=== PATIENT | male | born 1975 | race Caucasian/White ===

== ENCOUNTER 2016-05-25 18:57 | Emergency (ER) | payer OTHER ==
--- NOTE | 2016-05-25 19:48 | ED NURSING NOTES ---
Clinical Report - Nurses [facility] [address] [place] [address] 05/25/2016 19:00 Patient: JACQUE DUGGAN TRIAGE Triage time 19:15. Acuity: LEVEL 3. Chief Complaint: BACK PAIN. --19:21 Kee Neely R.N. 19:15 05/25/16. HR: 110. RR: 20. O2 saturation: 100%. Temp: 98.1 F. Pain level now 10. --19:21 Kee Neely R.N. 19:21 05/25/16. BP: 127/74. --19:21 Kee Neely R.N. Weight: 95.2 kg stated. Height/Length: 73 inches. BMI: 27.7. --19:16 Kee Neely R.N. Medications None. --19:20 Kee Neely R.N. Medication/allergy information source: the patient. --19:21 Kee Neely R.N. Allergies Codeine. Morphine Sulfate. Seafood. Vistaril. --19:20 Kee Neely R.N. History Arrived by private vehicle. Historian: patient. Unaccompanied. This started just prior to arrival. ( Pt was moving furniture and hurt his back. Pt has been having back problems for many years. Pt is having pain down both legs that is burning and shooting pain into the foot. Pt is having numbness in the feet. Pt was able to ambulate from the lobby to the room, but appeared in pain.). He has had numbness and tingling. No history of recent trauma. Occurred at home. ( in the feet). 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 PAST MEDICAL HX: Tetanus status: up-to-date. Immunizations: up-to-date. SOCIAL HX: Never smoker. No alcohol use or drug use. --19:21 Kee Neely R.N. Interventions ID band on patient. To treatment room. --19:21 Kee Neely R.N. PHYSICAL ASSESSMENT GENERAL / NEURO / PSYCH: Alert. Oriented X 4. Appears in no acute distress. Appears in pain. He has had numbness. RESPIRATORY: Respirations not labored. Chest nontender. Breath sounds within normal limits. CVS: Normal heart rate and rhythm. Capillary refill less than 2 seconds. GI / : Abdomen soft and nontender. Bowel sounds within normal limits. EXTREMITIES: Limited ROM present. Sensation intact in extremities. BACK: ( lower back pain). Normal inspection of the neck and back. Limited ROM of the back. No neck or back tenderness. --19:21 Kee Neely R.N. NURSING PROGRESS NOTES The plan of care for this patient has been created. Patient gowned. Head of bed elevated. Two patient identifiers checked. Call light placed in reach. Side rails up x 1. Bed placed in lowest position. --19:22 Kee Neely R.N. DISPOSITION / DISCHARGE Departure time: 19:51. Condition at departure: unchanged. No learning barriers present. Discharge instructions provided and reviewed with the patient. Reviewed warnings. Reviewed medication(s). Treatments reviewed. Patient verbalized understanding. Written instructions provided in Malaysian. The patient was discharged by the physician process assistant. He was discharged home and unaccompanied at time of discharge. He left the Emergency Department ambulatory and via private vehicle. Patient driving. --19:53 Kee Neely R.N. 19:49 05/25/16. BP: 125/75. HR: 80. RR: 18. O2 saturation: 99%. Pain level now 8/10. --19:53 Kee Neely R.N. Locked/Released at 05/25/2016 19:54 by Kee Neely R.N.
--- NOTE | 2016-05-25 19:48 | ED CLINICAL REPORT ---
Clinical Report - Physicians/Mid Levels [facility] [address] [place] [address] 05/25/2016 19:00 Patient: JACQUE DUGGAN Time Seen: 19:28 May 25 2016. Arrived- By private vehicle. Historian- patient. HISTORY OF PRESENT ILLNESS Chief Complaint: BACK PAIN. Onset was just prior to arrival and it is still present. It is described as being mild and in the area of the left side of the lower thoracic spine, lower thoracic spine and right side of the lower thoracic spine. The quality is noted to be "pain" and similar to prior episodes. No bladder dysfunction or bowel dysfunction. Additional history - patient reports history of back pain off and on episodes, without times paresthesias to bilateral lower extremities, left curb from his truck, she has a new one that is 2 days old, and felt an instantaneous pain to the primarily right side of his back. Reports pain worsens with movement, alleviated by laying on his side. Has taken Motrin at home prior to arrival. No direct fall or trauma. History of the same pain. Prior injury to his lumbar spine, distantly with fractures, and bulging disc, opted for no surgery at the time, has had physical therapy for this. Patient notes the possibility of an injury. REVIEW OF SYSTEMS No chills, sore throat, cough, difficulty breathing or chest pain. No nausea, vomiting, difficulty with urination, urinary frequency or hematuria. All systems otherwise negative, except as recorded above. PAST HISTORY Has not had a prior back injury. ADDITIONAL NOTES The nursing notes have been reviewed. PHYSICAL EXAM Appearance: Alert. HEENT: Normal external inspection. Neck: Normal inspection. Neck nontender. CVS: Normal heart rate and rhythm. Heart sounds normal. No cardiac murmur. Respiratory: No respiratory distress. Breath sounds normal. No decreased air movement or chest wall injury. Abdomen: Normal inspection. Soft. Back: Vertebral point tenderness (lumbar region, worse on right, with muscle spasms). Soft tissue tenderness. Skin: Skin warm. Normal skin color. Neuro: Oriented X 3. No motor deficit. No sensory deficit. Straight leg raising: positive on the right at 30 degrees and negative on the left. PROGRESS AND PROCEDURES Course of Care: pt able to ambulate. Drove self, driving self home. There are no risks for spinal epidural abscess or hematoma as patient is without any risk factors such as IVDA or evidence of active infection, no midline tenderness to percussion. Hence I do not feel emergent imaging with an MRI is indicated. However I did discuss with the patient that if these symptoms develop, or if the pain does not resolve an MRI may need to be done outpatient, or in the ED if symptoms worsen acutely or new onset of the above mentioned symptoms develop. 05/25/2016 19:21 BP: 127/74. 05/25/2016 19:15 HR: 110. RR: 20. O2 saturation: 100%. Temp: 98.1 F. Patient is stable. Symptoms better. Patient/family counseled. Disposition: Discharged. CLINICAL IMPRESSION Acute lumbar back pain. INSTRUCTIONS Apply ice. Rest for three days. Prescription Medications: Soma 350 mg: Take 1 orally every 6 hours as needed for muscle spasm. Dispense twenty (20). No refills. Substitution is permissible. Percocet 5 mg/325 mg: take 1 tablet orally every 6 hours as needed for pain. Dispense twelve (12). No refill. Substitution is permissible. Follow-up: Follow up with your doctor Sunday. (Electronically signed by Gwendolyn Martinez P.A.-C 05/25/2016 19:58)
--- NOTE | 2016-05-25 19:48 | ED NURSING NOTES ---
Clinical Report - Nurses [facility] [address] [place] [address] 05/25/2016 19:00 Patient: JACQUE DUGGAN TRIAGE Triage time 19:15. Acuity: LEVEL 3. Chief Complaint: BACK PAIN. --19:21 Kee Neely R.N. 19:15 05/25/16. HR: 110. RR: 20. O2 saturation: 100%. Temp: 98.1 F. Pain level now 10. --19:21 Kee Neely R.N. 19:21 05/25/16. BP: 127/74. --19:21 Kee Neely R.N. Weight: 95.2 kg stated. Height/Length: 73 inches. BMI: 27.7. --19:16 Kee Neely R.N. Medications None. --19:20 Kee Neely R.N. Medication/allergy information source: the patient. --19:21 Kee Neely R.N. Allergies Codeine. Morphine Sulfate. Seafood. Vistaril. --19:20 Kee Neely R.N. History Arrived by private vehicle. Historian: patient. Unaccompanied. This started just prior to arrival. ( Pt was moving furniture and hurt his back. Pt has been having back problems for many years. Pt is having pain down both legs that is burning and shooting pain into the foot. Pt is having numbness in the feet. Pt was able to ambulate from the lobby to the room, but appeared in pain.). He has had numbness and tingling. No history of recent trauma. Occurred at home. ( in the feet). Treatment CONDUCTOR YARD: Took Tylenol and ibuprofen. PAST MEDICAL HX: Tetanus status: up-to-date. Immunizations: up-to-date. SOCIAL HX: Never smoker. No alcohol use or drug use. --19:21 Kee Neely R.N. Interventions ID band on patient. To treatment room. --19:21 Kee Neely R.N. PHYSICAL ASSESSMENT GENERAL / NEURO / PSYCH: Alert. Oriented X 4. Appears in no acute distress. Appears in pain. He has had numbness. RESPIRATORY: Respirations not labored. Chest nontender. Breath sounds within normal limits. CVS: Normal heart rate and rhythm. Capillary refill less than 2 seconds. GI / : Abdomen soft and nontender. Bowel sounds within normal limits. EXTREMITIES: Limited ROM present. Sensation intact in extremities. BACK: ( lower back pain). Normal inspection of the neck and back. Limited ROM of the back. No neck or back tenderness. --19:21 Kee Neely R.N. NURSING PROGRESS NOTES The plan of care for this patient has been created. Patient gowned. Head of bed elevated. Two patient identifiers checked. Call light placed in reach. Side rails up x 1. Bed placed in lowest position. --19:22 Kee Neely R.N. DISPOSITION / DISCHARGE Departure time: 19:51. Condition at departure: unchanged. No learning barriers present. Discharge instructions provided and reviewed with the patient. Reviewed warnings. Reviewed medication(s). Treatments reviewed. Patient verbalized understanding. Written instructions provided in [place]. The patient was discharged by the physician office assistant. He was discharged home and unaccompanied at time of discharge. He left the Emergency Department ambulatory and via private vehicle. Patient driving. --19:53 Kee Neely R.N. 19:49 05/25/16. BP: 125/75. HR: 80. RR: 18. O2 saturation: 99%. Pain level now 8/10. --19:53 Kee Neely R.N. Locked/Released at 05/25/2016 19:54 by Kee Neely R.N.
--- NOTE | 2016-05-25 19:58 | ED MAR SUMMARY ---
..... Medication Administration Record [address] [place] [address] Patient: JACQUE DUGGAN Visit ID: [id number] 41y, M Weight: 95.2 kg Height/Length: 73 in BMI: 27.7 ALLERGIES: Codeine, Morphine Sulfate, Seafood, Vistaril
--- NOTE | 2016-05-25 19:58 | ED MAR SUMMARY ---
..... Medication Administration Record [facility] [address] [place] [address] Patient: JACQUE DUGGAN Visit ID: [id number] 41y, M Weight: 95.2 kg Height/Length: 73 in BMI: 27.7 ALLERGIES: Codeine, Morphine Sulfate, Seafood, Vistaril
--- NOTE | 2016-05-25 19:58 | ED MED RECONCILIATION SUMMARY ---
Patient: JACQUE DUGGAN Medication Reconciliation Report [facility] VisitID: [id number] [place] [address] 41y, M Registration Date/Time: 05/25/2016 Weight: 95.2 kg Height/Length: 73 in. BMI: 27.7 ALLERGIES: Codeine, Morphine Sulfate, Seafood, Vistaril The patient's Home Medications are listed below: NONE. The source(s) of the original Home Medication information: patient The following Medications were given to the patient in the Emergency Department: None. The following Medications were prescribed to the patient: Soma 350 mg: Take 1 orally every 6 hours as needed for muscle spasm. Dispense twenty (20). No refills. Substitution is permissible. -- Gwendolyn Martinez, P.A.-C Percocet 5 mg/325 mg: take 1 tablet orally every 6 hours as needed for pain. Dispense twelve (12). No refill. Substitution is permissible. -- Gwendolyn Martinez, P.A.-C
--- NOTE | 2016-05-25 19:58 | ED DISCHARGE INSTRUCTIONS ---
Patient: JACQUE DUGGAN General Instructions [facility] VisitID: [id number] [place] [address] 41y, M Registration Date/Time: 05/25/2016 Acute lumbar back pain. INSTRUCTIONS Apply ice. Rest for three days. Prescription Medications: Soma 350 mg: Take 1 orally every 6 hours as needed for muscle spasm. Dispense twenty (20). No refills. Substitution is permissible. Percocet 5 mg/325 mg: take 1 tablet orally every 6 hours as needed for pain. Dispense twelve (12). No refill. Substitution is permissible. Follow-up: Follow up with your doctor Sunday. ADDITIONAL INFORMATION Back Pain [Acute Or Chronic] Back pain is usually caused by an injury to the muscles or ligaments of the spine. Sometimes the disks that separate each bone in the spine may bulge and cause pain by pressing on a nearby nerve. Back pain may also appear after a sudden twisting/bending force (such as in a car accident), after a simple awkward movement, or lifting something heavy with poor body positioning. In either case, muscle spasm is often present and adds to the pain. Acute back pain usually gets better in one to two weeks. Back pain related to disk disease, arthritis in the spinal joints or spinal stenosis (narrowing of the spinal canal) can become chronic and last for months or years. Unless you had a physical injury (for example, a car accident or fall) X-rays are usually not ordered for the initial evaluation of back pain. If pain continues and does not respond to medical treatment, x-rays and other tests may be performed at a later time. Home Care: You may need to stay in bed the first few days. But, as soon as possible, begin sitting or walking to avoid problems with prolonged bed rest (muscle weakness, worsening back stiffness and pain, blood clots in the legs). When in bed, try to find a position of comfort. A firm mattress is best. Try lying flat on your back with pillows under your knees. You can also try lying on your side with your knees bent up towards your chest and a pillow between your knees. Avoid prolonged sitting. This puts more stress on the lower back than standing or walking. During the first two days after injury, apply an ICE PACK to the painful area for 20 minutes every 2-4 hours. This will reduce swelling and pain. HEAT (hot shower, hot bath or heating pad) works well for muscle spasm. You can start with ice, then switch to heat after two days. Some patients feel best alternating ice and heat treatments. Use the one method that feels the best to you. You may use acetaminophen (Tylenol) or ibuprofen (Motrin, Advil) to control pain, unless another pain medicine was prescribed. [NOTE: If you have chronic liver or kidney disease or ever had a stomach ulcer or GI bleeding, talk with your doctor before using these medicines.] Be aware of safe lifting methods and do not lift anything over 15 pounds until all the pain is gone. Follow Up with your doctor or this facility if your symptoms do not start to improve after one week. Physical therapy may be needed. [NOTE: If X-rays were taken, they will be reviewed by a radiologist. You will be notified of any new findings that may affect your care.] Get Prompt Medical Attention if any of the following occur: Pain becomes worse or spreads to your legs Weakness or numbness in one or both legs Loss of bowel or bladder control Numbness in the groin or genital area Sciatica Sciatica ("Lumbar Radiculopathy") causes a pain that spreads from the lower back down into the buttock, hip and leg. Sometimes leg pain can occur without any back pain. Sciatica is due to irritation or pressure on a spinal nerve as it comes out of the spinal canal. This is most often due to a bulge or rupture of a nearby spinal disk (the cartilage cushion between each spinal bone), which presses on a nearby nerve. Other causes include spinal stenosis (narrowing of the spinal canal) and spasm of the pyriform muscle (a muscle in the buttocks that the sciatic nerve passes through). Sciatica may begin after a sudden twisting/bending force (such as in a car accident), or sometimes after a simple awkward movement. In either case, muscle spasm is commonly present and contributes to the pain. The diagnosis of sciatica is made from the symptoms and physical exam. Unless you had a physical injury (such as a car accident or fall), X-rays are usually not ordered for the initial evaluation of sciatica because the nerves and disks cannot be seen on an x-ray. If signs of a compressed nerve are present (for example, loss of tendon reflex or strength in the leg), an MRI (magnetic resonance imaging) scan will need to be scheduled as an outpatient. Most sciatica (80-90%) gets better with medicine, exercise, physical therapy. If symptoms continue after at least three months of medical treatment, surgery may be considered. Home Care: You may need to stay in bed the first few days. But, as soon as possible, begin sitting or walking to avoid problems with prolonged bed rest. When in bed, try to find a position of comfort. A firm mattress is best. Try lying flat on your back with pillows under your knees. You can also try lying on your side with your knees bent up towards your chest and a pillow between your knees. Avoid prolonged sitting. This puts more stress on the lower back than standing or walking. Some persons find relief with heat (hot shower, hot bath or heating pad) and massage, while others prefer cold packs (crushed or cubed ice in a plastic bag, wrapped in a towel). Try both and use the method that feels best for 20 minutes several times a day. You may use acetaminophen (Tylenol) or ibuprofen (Motrin, Advil) to control pain, unless another pain medicine was prescribed. [ NOTE: If you have chronic liver or kidney disease or ever had a stomach ulcer or GI bleeding, talk with your doctor before using these medicines.] Be aware of safe lifting methods and do not lift anything over 15 pounds until all the pain is gone. Follow Up with your doctor or this facility if your symptoms do not start to improve after one week. Physical therapy or further testing may be needed. [NOTE: If X-rays were taken, they will be reviewed by a radiologist. You will be notified of any new findings that may affect your care.] Get Prompt Medical Attention if any of the following occur: Pain becomes worse, not controlled by the prescribed medicine Weakness or numbness in one or both legs Numbness in the groin, genital area Loss of bowel or bladder control Oxycodone Hydrochloride, Acetaminophen Oral tablet What is this medicine? ACETAMINOPHEN; OXYCODONE (a set a GABO loreta fen; ox i KOE done) is a pain reliever. It is used to treat mild to moderate pain. How should I use this medicine? Take this medicine by mouth with a full glass of water. Follow the directions on the prescription label. Take your medicine at regular intervals. Do not take your medicine more often than directed. Talk to your inside sales assistant regarding the use of this medicine in children. Special care may be needed. Patients over 65 years old may have a stronger reaction and need a smaller dose. What side effects may I notice from receiving this medicine? Side effects that you should report to your doctor or health personal care worker as soon as possible: allergic reactions like skin rash, itching or hives, swelling of the face, lips, or tongue breathing difficulties, wheezing confusion light headedness or fainting spells severe stomach pain yellowing of the skin or the whites of the eyes Side effects that usually do not require medical attention (report to your doctor or health personal care worker if they continue or are bothersome): dizziness drowsiness nausea vomiting What may interact with this medicine? alcohol antihistamines barbiturates like amobarbital, butalbital, butabarbital, methohexital, pentobarbital, phenobarbital, thiopental, and secobarbital benztropine drugs for bladder problems like solifenacin, trospium, oxybutynin, tolterodine, hyoscyamine, and methscopolamine drugs for breathing problems like ipratropium and tiotropium drugs for certain stomach or intestine problems like propantheline, homatropine methylbromide, glycopyrrolate, atropine, belladonna, and dicyclomine general anesthetics like etomidate, ketamine, nitrous oxide, propofol, desflurane, enflurane, halothane, isoflurane, and sevoflurane medicines for depression, anxiety, or psychotic disturbances medicines for sleep muscle relaxants naltrexone narcotic medicines (opiates) for pain phenothiazines like perphenazine, thioridazine, chlorpromazine, mesoridazine, fluphenazine, prochlorperazine, promazine, and trifluoperazine scopolamine tramadol trihexyphenidyl What if I miss a dose? If you miss a dose, take it as soon as you can. If it is almost time for your next dose, take only that dose. Do not take double or extra doses. Where should I keep my medicine? Keep out of the reach of children. This medicine can be abused. Keep your medicine in a safe place to protect it from theft. Do not share this medicine with anyone. Selling or giving away this medicine is dangerous and against the law. Store at room temperature between 20 and 25 degrees C (68 and 77 degrees F). Keep container tightly closed. Protect from light. This medicine may cause accidental overdose and if it is taken by other adults, children, or pets. Flush any unused medicine down the toilet to reduce the chance of harm. Do not use the medicine after the expiration date. What should I tell my health care provider before I take this medicine? They need to know if you have any of these conditions: brain tumor Crohn's disease, inflammatory bowel disease, or ulcerative colitis drink more than 3 alcohol containing drinks per day drug abuse or addiction head injury heart or circulation problems kidney disease or problems going to the bathroom liver disease lung disease, asthma, or breathing problems an unusual or allergic reaction to acetaminophen, oxycodone, other opioid analgesics, other medicines, foods, dyes, or preservatives or trying to get breast-feeding What should I watch for while using this medicine? Tell your doctor or health personal care worker if your pain does not go away, if it gets worse, or if you have new or a different type of pain. You may develop tolerance to the medicine. Tolerance means that you will need a higher dose of the medication for pain relief. Tolerance is normal and is expected if you take this medicine for a long time. Do not suddenly stop taking your medicine because you may develop a severe reaction. Your body becomes used to the medicine. This does NOT mean you are addicted. Addiction is a behavior related to getting and using a drug for a non-medical reason. If you have pain, you have a medical reason to take pain medicine. Your doctor will tell you how much medicine to take. If your doctor wants you to stop the medicine, the dose will be slowly lowered over time to avoid any side effects. You may get drowsy or dizzy. Do not drive, use machinery, or do anything that needs mental alertness until you know how this medicine affects you. Do not stand or sit up quickly, especially if you are an older patient. This reduces the risk of dizzy or fainting spells. Alcohol may interfere with the effect of this medicine. Avoid alcoholic drinks. There are different types of narcotic medicines (opiates) for pain. If you take more than one type at the same time, you may have more side effects. Give your health care provider a list of all medicines you use. Your doctor will tell you how much medicine to take. Do not take more medicine than directed. Call emergency for help if you have problems breathing. The medicine will cause constipation. Try to have a bowel movement at least every 2 to 3 days. If you do not have a bowel movement for 3 days, call your doctor or health personal care worker. Do not take Tylenol (acetaminophen) or medicines that have acetaminophen with this medicine. Too much acetaminophen can be very dangerous. Many nonprescription medicines contain acetaminophen. Always read the labels carefully to avoid taking more acetaminophen. You have been given the following additional information: Back Pain (Acute Or Chronic) Back Pain W/ Sciatica Oxycodone Hydrochloride, Acetaminophen Oral tablet Rest for three days. (Electronically signed by Gwendolyn Martinez P.A.-C 05/25/2016 19:58)
--- NOTE | 2016-05-25 19:58 | ED MED RECONCILIATION SUMMARY ---
Patient: JACQUE DUGGAN Medication Reconciliation Report [facility] VisitID: [id number] [place] [address] 41y, M Registration Date/Time: 05/25/2016 Weight: 95.2 kg Height/Length: 73 in. BMI: 27.7 ALLERGIES: Codeine, Morphine Sulfate, Seafood, Vistaril The patient's Home Medications are listed below: NONE. The source(s) of the original Home Medication information: patient The following Medications were given to the patient in the Emergency Department: None. The following Medications were prescribed to the patient: Soma 350 mg: Take 1 orally every 6 hours as needed for muscle spasm. Dispense twenty (20). No refills. Substitution is permissible. -- Gwendolyn Martinez, P.A.-C Percocet 5 mg/325 mg: take 1 tablet orally every 6 hours as needed for pain. Dispense twelve (12). No refill. Substitution is permissible. -- Gwendolyn Martinez, P.A.-C
== END 2016-05-25 19:51 | disposition home or self-care (01) ==
LOC: ED SRH 18:57
DX: M54.5 Low back pain (principal); Z88.5 Allergy status to narcotic agent; Z88.8 Allergy status to other drugs, medicaments and biological substances

== ENCOUNTER 2016-06-15 03:29 | Emergency (ER) | payer OTHER ==
--- NOTE | 2016-06-15 04:12 | ED ORDER SUMMARY ---
..... Patient: JACQUE DUGGAN OrderSheet [facility] VisitID: [id number] [address] [place] [address] 41y, M Registration Date/Time: 06/15/2016 ORDER SHEET Weight: 90.7 kg (stated) Allergies: Codeine, Morphine Sulfate, Seafood, Vistaril GENERAL ORDERS: MEDICATION ORDERS: Toradol IM 60 mg (NOW) (04:09 06/15/2016 Chandan Valente) (Ack 4:13 [facility]) (4:32 [facility]) IV FLUIDS: ORDER SHEET NOTES: [Electronically signed by Nathalia Moses (07:33 06/15/2016)] [Electronically signed by Ryan Gibson Dr. (10:36 06/20/2016)] [Electronically locked/signed by Nathalia Moses (07:33 06/15/2016)]
--- NOTE | 2016-06-15 04:12 | ED CLINICAL REPORT ---
Clinical Report - Physicians/Mid Levels [facility] [address] [place] [address] 06/15/2016 3:29 Patient: JACQUE DUGGAN Arrived- By private vehicle. Historian- patient. HISTORY OF PRESENT ILLNESS Chief Complaint: BACK PAIN. Onset- Has been ongoing for the past 15 years however has worsened over the past few days and it is still present and worsening. It was gradual in onset and has been constant but is not gone now. It is described as being in the area of the right lower lumbar spine and radiating (right lower extremity). Symptoms not described as severe. The quality is noted to be sharp. Modifying factors. (worsened by movement. Better with rest.). No bladder dysfunction, bowel dysfunction, sensory loss or motor loss. Additional history - He reports no fever. no History of IV drug use. The patient reports no saddle anesthesia. Urinary retention. Patient denies an injury but injury to the head or neck. No other injury. Similar symptoms previously: Many times. Recent medical care: Not recently seen/assessed. REVIEW OF SYSTEMS No fever, skin rash, headache, difficulty breathing or chest pain. All systems otherwise negative, except as recorded above. PAST HISTORY See nurses notes. SOCIAL HISTORY Former smoker. Occasional alcohol use. No drug use. No recent travel. Is a local resident. ADDITIONAL NOTES The nursing notes have been reviewed. PHYSICAL EXAM Vital Signs: 06/15/2016 03:43 BP: 141/85. HR: 98. RR: 18. O2 saturation: 100%. Temp: 98 F. Pain level now: 8/10. Hypertensive. Oxygen saturation normal. Appearance: Alert. No acute distress. HEENT: Normal external inspection. Eyes: Pupils equal, round and reactive to light. ENT: Ears normal. Pharynx normal. Neck: Normal inspection. Neck nontender. No muscle spasm or decreased ROM in the neck. Painless ROM. No vertebral tenderness. No meningeal signs. CVS: Heart sounds normal. Pulses normal. Respiratory: No respiratory distress. No respiratory distress. Breath sounds normal. No rales, wheezes or rhonchi. Abdomen: No visible injury. Soft and nontender. Bowel sounds normal. No mass. Back: Normal inspection. (no midline tenderness. No overlying skin changes. The rightlower lumbar paraspinal muscles appear to be tender on examination. No crepitus. No bony abnormalities. Compartments are soft. Positive straight leg test on the right). Skin: Skin warm and dry. Normal skin color. No rash. Normal skin turgor. Neuro: Oriented X 3. Mood/affect normal. No motor deficit. No sensory deficit. Reflexes normal. PROGRESS AND PROCEDURES Course of Care: The patient is a pleasant 41-year-old male presenting for nausea and back pain. Based on the patient's examination and history, patient has no red flags requiring imaging at this time. The patient will be managed conservatively at this time with nonsteroidal anti-inflammatory medications. Patient had driven here to the emergency department. Nonsedating medications offered. Patient was agreeable to the treatment and plan. Pain medication as provided. Patient reports slight improvement with the discomfort. Patient continues to be neurovascularly intact. Had long discussion with patient in regards to back pain. Recommended patient follow up with his primary care doctor for further evaluation and management of the back pain. I discussed the patient workup, diagnosis, home care, follow-up, and return precautions. All questions answered. The patient expressed understanding of these instructions and was agreeable to them. Do not feel patient has cauda equina syndrome, conus medullaris syndrome, or paraspinal infection. Did not feel this is atypical presentation for aortic dissection or appendicitis. Patient is nontoxic and in no acute distress. Did not feel patient is being admitted to the hospital or require further emergency department workup/evaluation. Disposition: Discharged. Condition: good. CLINICAL IMPRESSION Acute nontraumatic lumbar back pain. (lower bilateral). INSTRUCTIONS Warnings: GENERAL WARNINGS: Return or contact your physician immediately if your condition worsens or changes unexpectedly, if not improving as expected, or if other problems arise. SPECIFICALLY, return if you develop weakness, numbness, tingling, pain or incontinence. fever, worsening pain, or other concerns. Your Current Medications: CONTINUE TAKING THE FOLLOWING MEDICATIONS: Muscle Relaxant*. None*. None*. Prescription Medications: Motrin 600 mg tablets: take 1 tablet orally every 6 hours as needed for pain, stiffness or swelling. Dispense thirty (30). No refill. Substitution is permissible. Oxycodone/APAP 5 mg/325 mg: take 1 tablet orally every 6 hours as needed for pain. Dispense ten (10). No refill. Follow-up: Return to the emergency department as needed. Follow up with your doctor in three days. Reason for referral: recheck today's concerns. Screening today revealed the patient's blood pressure to be in the normal range. The patient should follow up with a primary care provider for blood pressure management. Understanding of the discharge instructions verbalized by patient. Follow-up with: [facility], , , [address], , [place], [address] Follow up. Reason for referral: contact if you are unable to get into see your doctor . Summary of care provided to patient via paper. (Electronically signed by Ryan Gibson Dr. 06/20/2016 10:36)
--- NOTE | 2016-06-15 04:12 | ED ORDER SUMMARY ---
..... Patient: JACQUE DUGGAN OrderSheet [facility] VisitID: [id number] [address] [place] [address] 41y, M Registration Date/Time: 06/15/2016 ORDER SHEET Weight: 90.7 kg (stated) Allergies: Codeine, Morphine Sulfate, Seafood, Vistaril GENERAL ORDERS: MEDICATION ORDERS: Toradol IM 60 mg (NOW) (04:09 06/15/2016 Chandan Valente) (Ack 4:13 [facility]) (4:32 [facility]) IV FLUIDS: ORDER SHEET NOTES: [Electronically signed by Nathalia Moses (07:33 06/15/2016)] [Electronically signed by Ryan Gibson Dr. (10:36 06/20/2016)] [Electronically locked/signed by Nathalia Moses (07:33 06/15/2016)]
--- NOTE | 2016-06-15 04:12 | ED NURSING NOTES ---
Clinical Report - Nurses [facility] [address] [place] [address] 06/15/2016 3:29 Patient: JACQUE DUGGAN TRIAGE Triage time 03:48 Jun 15 2016. Acuity: LEVEL 3. Chief Complaint: (Back pain). SEPSIS SCREEN: Sepsis Screen: negative. Negative (no infection suspected/documented). Heart rate greater than 90. DOUG COMA SCORE: [place] Coma Scale: 15- eyes open spontaneously (4); best verbal response- oriented x 4 (5); best motor response- obeys commands (6). --03:53 AliM 03:43 06/15/16. BP: 141/85. HR: 98. RR: 18. O2 saturation: 100%. Temp: 98 F (oral). Pain level now: 12/07. --03:53 AliM. Weight: 90.7 kg stated. Height/Length: 72 inches Per Patient. BMI: 27.1. --03:42 AliM. Medications None. --03:47 AliM None. --03:47 AliM Muscle Relaxant. --03:47 AliM. Allergies Codeine. Morphine Sulfate. Seafood. Vistaril. --03:47 AliM. History Arrived by private vehicle. Historian: patient. Unaccompanied. Primary physician (Dr. Medrano). This started last night. ( Pt states he had a herniated disk 15 years ago but did not receive surgery. Pt states rocking his son has aggravated his back pain over the last few weeks. Last night around 1800 the pain started getting worse. Pt states pain radiates across right gluteus Muscle and down both legs.). SOCIAL HX: Smoker- current status unknown (quit 30 years ago). Occasional alcohol use. No drug use. No infectious disease exposure. ABUSE ASSESSMENT: No report of abuse. NUTRITIONAL RISK ASSESSMENT: The nutritional risk assessment revealed no deficiencies. FUNCTIONAL ASSESSMENT: Functional assessment: no impairments noted. LEARNING NEEDS ASSESSMENT: The learning needs assessment revealed no barriers. FALL RISK ASSESSMENT: Fall risk assessment completed. Risk factors identified include severe pain, nausea and patient impairment of mobility. Fall interventions initiated. Side rails up x1. Brakes on Bed in low position. Call light in reach of patient. Instructed not to get up without assistance. SKIN INTEGRITY ASSESSMENT: Skin integrity risk assessment completed. No skin integrity risk identified. --03:53 AliM ( Pt states burning and tingling sensation down both legs with numbness on bottom of right foot.). --03:56 AliM. PROBLEMS: Sciatica. Back Injury. Intervertebral Disc Disease. --03:48 AliM. Interventions ID band on patient. To treatment room. --03:53 AliM. PHYSICAL ASSESSMENT Ambulatory to room. Patient gowned. GENERAL / NEURO / PSYCH: Alert. Oriented X 4. Appears in pain. HEENT: No facial asymmetry noted. Mucous membranes are pink. RESPIRATORY: Respirations not labored. Chest nontender. CVS: Cardiac rhythm: sinus tachycardia. GI / : Abdomen soft and nontender. SKIN: Skin intact. Skin is warm and dry. BACK: Limited ROM in the back- in the lumbar spine: decreased flexion, extension, right lateral bending, left lateral bending and rotation to the right and left. ( Pt describes shooting burning pain down both legs and tingling on both feet. Numbness on bottom of right foot.). --03:55 AliM. NURSING PROGRESS NOTES Monitoring of patient in place. Patient gowned. Head of bed elevated. Reassurance given. Two patient identifiers checked. Call light placed in reach. Side rails up x 1. Bed placed in lowest position. Brakes of bed on. Patient ready for evaluation- ED physician notified. --03:56 AliM 04:17 06/15/2016 Toradol (Ketorolac Tromethamine) IM 30 mg given. Given in the left gluteus kristina. Allergies verified and confirmed 5 rights. --04:32 AliM. DISPOSITION / DISCHARGE 04:20 06/15/16. Cardiac rhythm: normal sinus rhythm. Condition at departure: unchanged and stable. ( Pt got Toradol in ED and received Oxycodone for RX at home since pt drove himself.). Fall risk assessment completed. Risk factors identified include severe pain, nausea and patient impairment of mobility and sensation. No learning barriers present. Discharge instructions provided and reviewed with the patient. Patient verbalized understanding. Written instructions provided in Swazi. ( Informed pt not to drive while taking RX, apply ice/heat for 20 mins as needed for pain. Taught pt to rest and stretch to relieve pain.). The patient was discharged by the physician. He was discharged home and unaccompanied at time of discharge. He left the Emergency Department ambulatory and via private vehicle. Patient driving. --04:31 Destiny 04:27 06/15/16. BP: 114/71. HR: 82. RR: 18. Pain level now: 12/07. --04:31 Destiny ( Chart reviewed by writing RN). --07:32 Nathalia Moses. Locked/Released at 06/15/2016 7:33 by Nathalia Moses,
--- NOTE | 2016-06-15 04:12 | ED NURSING NOTES ---
Clinical Report - Nurses [facility] [address] [place] [address] 06/15/2016 3:29 Patient: JACQUE DUGGAN TRIAGE Triage time 03:48 Jun 15 2016. Acuity: LEVEL 3. Chief Complaint: (Back pain). SEPSIS SCREEN: Sepsis Screen: negative. Negative (no infection suspected/documented). Heart rate greater than 90. DOUG COMA SCORE: [place] Coma Scale: 15- eyes open spontaneously (4); best verbal response- oriented x 4 (5); best motor response- obeys commands (6). --03:53 AliM 03:43 06/15/16. BP: 141/85. HR: 98. RR: 18. O2 saturation: 100%. Temp: 98 F (oral). Pain level now: 12/07. --03:53 AliM. Weight: 90.7 kg stated. Height/Length: 72 inches Per Patient. BMI: 27.1. --03:42 AliM. Medications None. --03:47 AliM None. --03:47 AliM Muscle Relaxant. --03:47 AliM. Allergies Codeine. Morphine Sulfate. Seafood. Vistaril. --03:47 AliM. History Arrived by private vehicle. Historian: patient. Unaccompanied. Primary physician (Dr. Medrano). This started last night. ( Pt states he had a herniated disk 15 years ago but did not receive surgery. Pt states rocking his son has aggravated his back pain over the last few weeks. Last night around 1800 the pain started getting worse. Pt states pain radiates across right gluteus Muscle and down both legs.). SOCIAL HX: Smoker- current status unknown (quit 30 years ago). Occasional alcohol use. No drug use. No infectious disease exposure. ABUSE ASSESSMENT: No report of abuse. NUTRITIONAL RISK ASSESSMENT: The nutritional risk assessment revealed no deficiencies. FUNCTIONAL ASSESSMENT: Functional assessment: no impairments noted. LEARNING NEEDS ASSESSMENT: The learning needs assessment revealed no barriers. FALL RISK ASSESSMENT: Fall risk assessment completed. Risk factors identified include severe pain, nausea and patient impairment of mobility. Fall interventions initiated. Side rails up x1. Brakes on Bed in low position. Call light in reach of patient. Instructed not to get up without assistance. SKIN INTEGRITY ASSESSMENT: Skin integrity risk assessment completed. No skin integrity risk identified. --03:53 AliM ( Pt states burning and tingling sensation down both legs with numbness on bottom of right foot.). --03:56 AliM. PROBLEMS: Sciatica. Back Injury. Intervertebral Disc Disease. --03:48 AliM. Interventions ID band on patient. To treatment room. --03:53 AliM. PHYSICAL ASSESSMENT Ambulatory to room. Patient gowned. GENERAL / NEURO / PSYCH: Alert. Oriented X 4. Appears in pain. HEENT: No facial asymmetry noted. Mucous membranes are pink. RESPIRATORY: Respirations not labored. Chest nontender. CVS: Cardiac rhythm: sinus tachycardia. GI / : Abdomen soft and nontender. SKIN: Skin intact. Skin is warm and dry. BACK: Limited ROM in the back- in the lumbar spine: decreased flexion, extension, right lateral bending, left lateral bending and rotation to the right and left. ( Pt describes shooting burning pain down both legs and tingling on both feet. Numbness on bottom of right foot.). --03:55 AliM. NURSING PROGRESS NOTES Monitoring of patient in place. Patient gowned. Head of bed elevated. Reassurance given. Two patient identifiers checked. Call light placed in reach. Side rails up x 1. Bed placed in lowest position. Brakes of bed on. Patient ready for evaluation- ED physician notified. --03:56 AliM 04:17 06/15/2016 Toradol (Ketorolac Tromethamine) IM 30 mg given. Given in the left gluteus kristina. Allergies verified and confirmed 5 rights. --04:32 AliM. DISPOSITION / DISCHARGE 04:20 06/15/16. Cardiac rhythm: normal sinus rhythm. Condition at departure: unchanged and stable. ( Pt got Toradol in ED and received Oxycodone for RX at home since pt drove himself.). Fall risk assessment completed. Risk factors identified include severe pain, nausea and patient impairment of mobility and sensation. No learning barriers present. Discharge instructions provided and reviewed with the patient. Patient verbalized understanding. Written instructions provided in Spanish. ( Informed pt not to drive while taking RX, apply ice/heat for 20 mins as needed for pain. Taught pt to rest and stretch to relieve pain.). The patient was discharged by the physician. He was discharged home and unaccompanied at time of discharge. He left the Emergency Department ambulatory and via private vehicle. Patient driving. --04:31 Destiny 04:27 06/15/16. BP: 114/71. HR: 82. RR: 18. Pain level now: 12/07. --04:31 Destiny ( Chart reviewed by writing RN). --07:32 Nathalia oMses. Locked/Released at 06/15/2016 7:33 by Nathalia Moses,
--- NOTE | 2016-06-15 04:12 | ED CLINICAL REPORT ---
Clinical Report - Physicians/Mid Levels [facility] [address] [place] [address] 06/15/2016 3:29 Patient: JACQUE DUGGAN Arrived- By private vehicle. Historian- patient. HISTORY OF PRESENT ILLNESS Chief Complaint: BACK PAIN. Onset- Has been ongoing for the past 15 years however has worsened over the past few days and it is still present and worsening. It was gradual in onset and has been constant but is not gone now. It is described as being in the area of the right lower lumbar spine and radiating (right lower extremity). Symptoms not described as severe. The quality is noted to be sharp. Modifying factors. (worsened by movement. Better with rest.). No bladder dysfunction, bowel dysfunction, sensory loss or motor loss. Additional history - He reports no fever. no History of IV drug use. The patient reports no saddle anesthesia. Urinary retention. Patient denies an injury but injury to the head or neck. No other injury. Similar symptoms previously: Many times. Recent medical care: Not recently seen/assessed. REVIEW OF SYSTEMS No fever, skin rash, headache, difficulty breathing or chest pain. All systems otherwise negative, except as recorded above. PAST HISTORY See nurses notes. SOCIAL HISTORY Former smoker. Occasional alcohol use. No drug use. No recent travel. Is a local resident. ADDITIONAL NOTES The nursing notes have been reviewed. PHYSICAL EXAM Vital Signs: 06/15/2016 03:43 BP: 141/85. HR: 98. RR: 18. O2 saturation: 100%. Temp: 98 F. Pain level now: 8/10. Hypertensive. Oxygen saturation normal. Appearance: Alert. No acute distress. HEENT: Normal external inspection. Eyes: Pupils equal, round and reactive to light. ENT: Ears normal. Pharynx normal. Neck: Normal inspection. Neck nontender. No muscle spasm or decreased ROM in the neck. Painless ROM. No vertebral tenderness. No meningeal signs. CVS: Heart sounds normal. Pulses normal. Respiratory: No respiratory distress. No respiratory distress. Breath sounds normal. No rales, wheezes or rhonchi. Abdomen: No visible injury. Soft and nontender. Bowel sounds normal. No mass. Back: Normal inspection. (no midline tenderness. No overlying skin changes. The rightlower lumbar paraspinal muscles appear to be tender on examination. No crepitus. No bony abnormalities. Compartments are soft. Positive straight leg test on the right). Skin: Skin warm and dry. Normal skin color. No rash. Normal skin turgor. Neuro: Oriented X 3. Mood/affect normal. No motor deficit. No sensory deficit. Reflexes normal. PROGRESS AND PROCEDURES Course of Care: The patient is a pleasant 41-year-old male presenting for nausea and back pain. Based on the patient's examination and history, patient has no red flags requiring imaging at this time. The patient will be managed conservatively at this time with nonsteroidal anti-inflammatory medications. Patient had driven here to the emergency department. Nonsedating medications offered. Patient was agreeable to the treatment and plan. Pain medication as provided. Patient reports slight improvement with the discomfort. Patient continues to be neurovascularly intact. Had long discussion with patient in regards to back pain. Recommended patient follow up with his primary care doctor for further evaluation and management of the back pain. I discussed the patient workup, diagnosis, home care, follow-up, and return precautions. All questions answered. The patient expressed understanding of these instructions and was agreeable to them. Do not feel patient has cauda equina syndrome, conus medullaris syndrome, or paraspinal infection. Did not feel this is atypical presentation for aortic dissection or appendicitis. Patient is nontoxic and in no acute distress. Did not feel patient is being admitted to the hospital or require further emergency department workup/evaluation. Disposition: Discharged. Condition: good. CLINICAL IMPRESSION Acute nontraumatic lumbar back pain. (lower bilateral). INSTRUCTIONS Warnings: GENERAL WARNINGS: Return or contact your physician immediately if your condition worsens or changes unexpectedly, if not improving as expected, or if other problems arise. SPECIFICALLY, return if you develop weakness, numbness, tingling, pain or incontinence. fever, worsening pain, or other concerns. Your Current Medications: CONTINUE TAKING THE FOLLOWING MEDICATIONS: Muscle Relaxant*. None*. None*. Prescription Medications: Motrin 600 mg tablets: take 1 tablet orally every 6 hours as needed for pain, stiffness or swelling. Dispense thirty (30). No refill. Substitution is permissible. Oxycodone/APAP 5 mg/325 mg: take 1 tablet orally every 6 hours as needed for pain. Dispense ten (10). No refill. Follow-up: Return to the emergency department as needed. Follow up with your doctor in three days. Reason for referral: recheck today's concerns. Screening today revealed the patient's blood pressure to be in the normal range. The patient should follow up with a primary care provider for blood pressure management. Understanding of the discharge instructions verbalized by patient. Follow-up with: [facility], , , [address], , [place], [address] Follow up. Reason for referral: contact if you are unable to get into see your doctor . Summary of care provided to patient via paper. (Electronically signed by Ryan Gibson Dr. 06/20/2016 10:36)
--- NOTE | 2016-06-20 10:36 | ED DISCHARGE INSTRUCTIONS ---
Patient: JACQUE DUGGAN General Instructions [facility] VisitID: [id number] [address] [place] [address] 41y, M Registration Date/Time: 06/15/2016 Acute nontraumatic lumbar back pain. (lower bilateral). INSTRUCTIONS Warnings: GENERAL WARNINGS: Return or contact your physician immediately if your condition worsens or changes unexpectedly, if not improving as expected, or if other problems arise. SPECIFICALLY, return if you develop weakness, numbness, tingling, pain or incontinence. fever, worsening pain, or other concerns. Your Current Medications: CONTINUE TAKING THE FOLLOWING MEDICATIONS: Muscle Relaxant*. None*. None*. Prescription Medications: Motrin 600 mg tablets: take 1 tablet orally every 6 hours as needed for pain, stiffness or swelling. Dispense thirty (30). No refill. Substitution is permissible. Oxycodone/APAP 5 mg/325 mg: take 1 tablet orally every 6 hours as needed for pain. Dispense ten (10). No refill. Follow-up: Return to the emergency department as needed. Follow up with your doctor in three days. Reason for referral: recheck today's concerns. Screening today revealed the patient's blood pressure to be in the normal range. The patient should follow up with a primary care provider for blood pressure management. Understanding of the discharge instructions verbalized by patient. Follow-up with: [facility], , , [address], , [place], [id number] Follow up. Reason for referral: contact if you are unable to get into see your doctor . Summary of care provided to patient via paper. ADDITIONAL INFORMATION Sciatica Sciatica ("Lumbar Radiculopathy") causes a pain that spreads from the lower back down into the buttock, hip and leg. Sometimes leg pain can occur without any back pain. Sciatica is due to irritation or pressure on a spinal nerve as it comes out of the spinal canal. This is most often due to a bulge or rupture of a nearby spinal disk (the cartilage cushion between each spinal bone), which presses on a nearby nerve. Other causes include spinal stenosis (narrowing of the spinal canal) and spasm of the pyriform muscle (a muscle in the buttocks that the sciatic nerve passes through). Sciatica may begin after a sudden twisting/bending force (such as in a car accident), or sometimes after a simple awkward movement. In either case, muscle spasm is commonly present and contributes to the pain. The diagnosis of sciatica is made from the symptoms and physical exam. Unless you had a physical injury (such as a car accident or fall), X-rays are usually not ordered for the initial evaluation of sciatica because the nerves and disks cannot be seen on an x-ray. If signs of a compressed nerve are present (for example, loss of tendon reflex or strength in the leg), an MRI (magnetic resonance imaging) scan will need to be scheduled as an outpatient. Most sciatica (80-90%) gets better with medicine, exercise, physical therapy. If symptoms continue after at least three months of medical treatment, surgery may be considered. Home Care: You may need to stay in bed the first few days. But, as soon as possible, begin sitting or walking to avoid problems with prolonged bed rest. When in bed, try to find a position of comfort. A firm mattress is best. Try lying flat on your back with pillows under your knees. You can also try lying on your side with your knees bent up towards your chest and a pillow between your knees. Avoid prolonged sitting. This puts more stress on the lower back than standing or walking. Some persons find relief with heat (hot shower, hot bath or heating pad) and massage, while others prefer cold packs (crushed or cubed ice in a plastic bag, wrapped in a towel). Try both and use the method that feels best for 20 minutes several times a day. You may use acetaminophen (Tylenol) or ibuprofen (Motrin, Advil) to control pain, unless another pain medicine was prescribed. [ NOTE: If you have chronic liver or kidney disease or ever had a stomach ulcer or GI bleeding, talk with your doctor before using these medicines.] Be aware of safe lifting methods and do not lift anything over 15 pounds until all the pain is gone. Follow Up with your doctor or this facility if your symptoms do not start to improve after one week. Physical therapy or further testing may be needed. [NOTE: If X-rays were taken, they will be reviewed by a radiologist. You will be notified of any new findings that may affect your care.] Get Prompt Medical Attention if any of the following occur: Pain becomes worse, not controlled by the prescribed medicine Weakness or numbness in one or both legs Numbness in the groin, genital area Loss of bowel or bladder control Ibuprofen Oral tablet What is this medicine? IBUPROFEN (eye BYOO proe fen) is a non-steroidal anti-inflammatory drug (NSAID). It is used for dental pain, fever, headaches or migraines, osteoarthritis, rheumatoid arthritis, or painful monthly periods. It can also relieve minor aches and pains caused by a cold, flu, or sore throat. How should I use this medicine? Take this medicine by mouth with a glass of water. Follow the directions on the prescription label. Take this medicine with food if your stomach gets upset. Try to not lie down for at least 10 minutes after you take the medicine. Take your medicine at regular intervals. Do not take your medicine more often than directed. A special MedGuide will be given to you by the pharmacist with each prescription and refill. Be sure to read this information carefully each time. Talk to your filtering machine tender helper regarding the use of this medicine in children. Special care may be needed. What side effects may I notice from receiving this medicine? Side effects that you should report to your doctor or health child day care center worker as soon as possible: allergic reactions like skin rash, itching or hives, swelling of the face, lips, or tongue black or bloody stools, blood in the urine or in vomit breathing problems changes in vision chest pain general ill feeling or flu-like symptoms nausea or vomiting redness, blistering, peeling or loosening of the skin, including inside the mouth slurred speech or weakness on one side of the body stomach pain unexplained weight gain or swelling unusually weak or tired yellowing of eyes or skin Side effects that usually do not require medical attention (report to your doctor or health child day care center worker if they continue or are bothersome): constipation or diarrhea dizziness gas or heartburn stomach upset What may interact with this medicine? Do not take this medicine with any of the following medications: cidofovir ketorolac methotrexate pemetrexed This medicine may also interact with the following medications: alcohol aspirin diuretics lithium other drugs for inflammation like prednisone warfarin What if I miss a dose? If you miss a dose, take it as soon as you can. If it is almost time for your next dose, take only that dose. Do not take double or extra doses. Where should I keep my medicine? Keep out of the reach of children. Store at room temperature between 15 and 30 degrees C (59 and 86 degrees F). Keep container tightly closed. Throw away any unused medicine after the expiration date. What should I tell my health care provider before I take this medicine? They need to know if you have any of these conditions: asthma cigarette smoker drink more than 3 alcohol containing drinks a day heart disease or circulation problems such as heart failure or leg edema (fluid retention) high blood pressure kidney disease liver disease stomach bleeding or ulcers an unusual or allergic reaction to ibuprofen, aspirin, other NSAIDS, other medicines, foods, dyes, or preservatives or trying to get breast-feeding What should I watch for while using this medicine? Tell your doctor or healthcare professional if your symptoms do not start to get better or if they get worse. This medicine does not prevent heart attack or stroke. In fact, this medicine may increase the chance of a heart attack or stroke. The chance may increase with longer use of this medicine and in people who have heart disease. If you take aspirin to prevent heart attack or stroke, talk with your doctor or health child day care center worker. Do not take other medicines that contain aspirin, ibuprofen, or naproxen with this medicine. Side effects such as stomach upset, nausea, or ulcers may be more likely to occur. Many medicines available without a prescription should not be taken with this medicine. This medicine can cause ulcers and bleeding in the stomach and intestines at any time during treatment. Ulcers and bleeding can happen without warning symptoms and can cause . To reduce your risk, do not smoke cigarettes or drink alcohol while you are taking this medicine. You may get drowsy or dizzy. Do not drive, use machinery, or do anything that needs mental alertness until you know how this medicine affects you. Do not stand or sit up quickly, especially if you are an older patient. This reduces the risk of dizzy or fainting spells. This medicine can cause you to bleed more easily. Try to avoid damage to your teeth and gums when you brush or floss your teeth. Oxycodone Hydrochloride, Acetaminophen Oral tablet What is this medicine? ACETAMINOPHEN; OXYCODONE (a set a GABO loreta fen; ox i KOE done) is a pain reliever. It is used to treat mild to moderate pain. How should I use this medicine? Take this medicine by mouth with a full glass of water. Follow the directions on the prescription label. Take your medicine at regular intervals. Do not take your medicine more often than directed. Talk to your filtering machine tender helper regarding the use of this medicine in children. Special care may be needed. Patients over 65 years old may have a stronger reaction and need a smaller dose. What side effects may I notice from receiving this medicine? Side effects that you should report to your doctor or health child day care center worker as soon as possible: allergic reactions like skin rash, itching or hives, swelling of the face, lips, or tongue breathing difficulties, wheezing confusion light headedness or fainting spells severe stomach pain yellowing of the skin or the whites of the eyes Side effects that usually do not require medical attention (report to your doctor or health child day care center worker if they continue or are bothersome): dizziness drowsiness nausea vomiting What may interact with this medicine? alcohol antihistamines barbiturates like amobarbital, butalbital, butabarbital, methohexital, pentobarbital, phenobarbital, thiopental, and secobarbital benztropine drugs for bladder problems like solifenacin, trospium, oxybutynin, tolterodine, hyoscyamine, and methscopolamine drugs for breathing problems like ipratropium and tiotropium drugs for certain stomach or intestine problems like propantheline, homatropine methylbromide, glycopyrrolate, atropine, belladonna, and dicyclomine general anesthetics like etomidate, ketamine, nitrous oxide, propofol, desflurane, enflurane, halothane, isoflurane, and sevoflurane medicines for depression, anxiety, or psychotic disturbances medicines for sleep muscle relaxants naltrexone narcotic medicines (opiates) for pain phenothiazines like perphenazine, thioridazine, chlorpromazine, mesoridazine, fluphenazine, prochlorperazine, promazine, and trifluoperazine scopolamine tramadol trihexyphenidyl What if I miss a dose? If you miss a dose, take it as soon as you can. If it is almost time for your next dose, take only that dose. Do not take double or extra doses. Where should I keep my medicine? Keep out of the reach of children. This medicine can be abused. Keep your medicine in a safe place to protect it from theft. Do not share this medicine with anyone. Selling or giving away this medicine is dangerous and against the law. Store at room temperature between 20 and 25 degrees C (68 and 77 degrees F). Keep container tightly closed. Protect from light. This medicine may cause accidental overdose and if it is taken by other adults, children, or pets. Flush any unused medicine down the toilet to reduce the chance of harm. Do not use the medicine after the expiration date. What should I tell my health care provider before I take this medicine? They need to know if you have any of these conditions: brain tumor Crohn's disease, inflammatory bowel disease, or ulcerative colitis drink more than 3 alcohol containing drinks per day drug abuse or addiction head injury heart or circulation problems kidney disease or problems going to the bathroom liver disease lung disease, asthma, or breathing problems an unusual or allergic reaction to acetaminophen, oxycodone, other opioid analgesics, other medicines, foods, dyes, or preservatives or trying to get breast-feeding What should I watch for while using this medicine? Tell your doctor or health child day care center worker if your pain does not go away, if it gets worse, or if you have new or a different type of pain. You may develop tolerance to the medicine. Tolerance means that you will need a higher dose of the medication for pain relief. Tolerance is normal and is expected if you take this medicine for a long time. Do not suddenly stop taking your medicine because you may develop a severe reaction. Your body becomes used to the medicine. This does NOT mean you are addicted. Addiction is a behavior related to getting and using a drug for a non-medical reason. If you have pain, you have a medical reason to take pain medicine. Your doctor will tell you how much medicine to take. If your doctor wants you to stop the medicine, the dose will be slowly lowered over time to avoid any side effects. You may get drowsy or dizzy. Do not drive, use machinery, or do anything that needs mental alertness until you know how this medicine affects you. Do not stand or sit up quickly, especially if you are an older patient. This reduces the risk of dizzy or fainting spells. Alcohol may interfere with the effect of this medicine. Avoid alcoholic drinks. There are different types of narcotic medicines (opiates) for pain. If you take more than one type at the same time, you may have more side effects. Give your health care provider a list of all medicines you use. Your doctor will tell you how much medicine to take. Do not take more medicine than directed. Call emergency for help if you have problems breathing. The medicine will cause constipation. Try to have a bowel movement at least every 2 to 3 days. If you do not have a bowel movement for 3 days, call your doctor or health child day care center worker. Do not take Tylenol (acetaminophen) or medicines that have acetaminophen with this medicine. Too much acetaminophen can be very dangerous. Many nonprescription medicines contain acetaminophen. Always read the labels carefully to avoid taking more acetaminophen. You have been given the following additional information: Back Pain W/ Sciatica Ibuprofen Oral tablet Oxycodone Hydrochloride, Acetaminophen Oral tablet (Electronically signed by Ryan Gibson Dr. 06/20/2016 10:36)
--- NOTE | 2016-06-20 10:37 | ED MAR SUMMARY ---
..... Medication Administration Record [address] [place] [address] Patient: JACQUE DUGGAN Visit ID: [id number] 41y, M Weight: 90.7 kg Height/Length: 72 in BMI: 27.1 ALLERGIES: Codeine, Morphine Sulfate, Seafood, Vistaril Given 04:17 06/15/2016 Destiny, Medication Administered: TORADOL [IM] (KETOROLAC TROMETHAMINE), Dose: 30 mg IM. Medication Ordered: Toradol IM 60 mg (NOW).
--- NOTE | 2016-06-20 10:37 | ED MED RECONCILIATION SUMMARY ---
Patient: JACQUE DUGGAN Medication Reconciliation Report [facility] VisitID: [id number] [address] [place] [address] 41y, M Registration Date/Time: 06/15/2016 Weight: 90.7 kg Height/Length: 72 in. BMI: 27.1 ALLERGIES: Codeine, Morphine Sulfate, Seafood, Vistaril The patient's Home Medications are listed below: CONTINUE TAKING THE FOLLOWING MEDICATIONS: Muscle Relaxant The source(s) of the original Home Medication information: Not obtained. The following Medications were given to the patient in the Emergency Department: Toradol [IM] IM 30 mg, administered: 06/15/2016 4:17:00 AM The following Medications were prescribed to the patient: Motrin 600 mg tablets: take 1 tablet orally every 6 hours as needed for pain, stiffness or swelling. Dispense thirty (30). No refill. Substitution is permissible. -- Ryan Gibson Dr. Oxycodone/APAP 5 mg/325 mg: take 1 tablet orally every 6 hours as needed for pain. Dispense ten (10). No refill. -- Ryan Gibson Dr.
--- NOTE | 2016-06-20 10:37 | ED MED RECONCILIATION SUMMARY ---
Patient: JACQUE DUGGAN Medication Reconciliation Report [facility] VisitID: [id number] [address] [place] [address] 41y, M Registration Date/Time: 06/15/2016 Weight: 90.7 kg Height/Length: 72 in. BMI: 27.1 ALLERGIES: Codeine, Morphine Sulfate, Seafood, Vistaril The patient's Home Medications are listed below: CONTINUE TAKING THE FOLLOWING MEDICATIONS: Muscle Relaxant The source(s) of the original Home Medication information: Not obtained. The following Medications were given to the patient in the Emergency Department: Toradol [IM] IM 30 mg, administered: 06/15/2016 4:17:00 AM The following Medications were prescribed to the patient: Motrin 600 mg tablets: take 1 tablet orally every 6 hours as needed for pain, stiffness or swelling. Dispense thirty (30). No refill. Substitution is permissible. -- Ryan Gibson Dr. Oxycodone/APAP 5 mg/325 mg: take 1 tablet orally every 6 hours as needed for pain. Dispense ten (10). No refill. -- Ryan Gibson Dr.
--- NOTE | 2016-06-20 10:37 | ED MAR SUMMARY ---
..... Medication Administration Record [address] [place] [address] Patient: JACQUE DUGGAN Visit ID: [id number] 41y, M Weight: 90.7 kg Height/Length: 72 in BMI: 27.1 ALLERGIES: Codeine, Morphine Sulfate, Seafood, Vistaril Given 04:17 06/15/2016 Destiny, Medication Administered: TORADOL [IM] (KETOROLAC TROMETHAMINE), Dose: 30 mg IM. Medication Ordered: Toradol IM 60 mg (NOW).
== END 2016-06-15 14:00 | disposition home or self-care (01) ==
LOC: ED SRH 03:29
DX: M54.5 Low back pain (principal); Z88.8 Allergy status to other drugs, medicaments and biological substances; Z88.5 Allergy status to narcotic agent